=== PATIENT | female | born 1985 | race Caucasian/White ===

== ENCOUNTER 2019-11-30 00:12 | Emergency (ER) | payer MEDICAID ==
[~2019-11-30] VITALS: Ht 175.3 cm; Wt 90.7 kg
[2019-11-30 01:27] VITALS: BP 134/102
[2019-11-30] MEDS ORDERED: KETOROLAC TROMETH 60MG/2ML VIAL IM ONE (02:00)
[2019-11-30] MEDS ORDERED: LORazepam 2MG/ML-1ML VIAL IM ONE (02:00)
== END 2019-11-30 02:43 | disposition home or self-care (01) ==
LOC: EDBD 00:12 → ER 00:20
DX: M62.838 Other muscle spasm (principal); R07.81 Pleurodynia; V49.9XXA Car occupant (driver) (passenger) injured in unspecified traffic accident, initial encounter; Y93.89 Activity, other specified; Y92.89 Other specified places as the place of occurrence of the external cause; Y99.8 Other external cause status
CPT/HCPCS: 71111; 96372; 99283; J1885; J2060